=== PATIENT | female | born 1960 | race Caucasian/White ===

== ENCOUNTER 2025-06-20 11:02 | Emergency (ER) | payer OTHER, SELFPAY ==
[2025-06-20] VITALS (18 sets, daily range): BP systolic 102–143; BP diastolic 53–74; PULSE 65–82; RESP 13–24; TEMP 36.1; O2SAT 90–100; BMI 22.1
--- NOTE | 2025-06-20 11:17 | EKG_ITS ---
[address] [address] Test Date: 2025-06-20 Pat Name: Gina Stapleton Department: Room: Gender: Female [place] Attendant: DOYLE : 1960 Requested By: Order Number: [id number] Reading MD: Osmany Solis Measurements Intervals [place] Rate: 72 P: 67 FL: 168 QRS: -7 QRSD: 96 T: 50 QT: 386 QTc: 422 Interpretive Statements Normal sinus rhythm with sinus arrhythmia Low voltage QRS Electronically Signed On 06-24-2025 8:24:57 PDT by Osmany Solis
--- NOTE | 2025-06-20 11:17 | DI.RAD.S_ITS ---
PROCEDURE: XR CHEST 1V INDICATIONS: Possible stroke TECHNIQUE: One view of the chest was acquired. COMPARISON: None. FINDINGS: Surgical changes and devices: None. Lungs and pleura: Lungs are clear. No pleural effusions or pneumothorax. Mediastinum: Mediastinal contours appear normal. Heart size is normal. Bones and chest wall: No suspicious bony lesions. Overlying soft tissues appear unremarkable. IMPRESSION: No acute cardiopulmonary abnormality is seen. Approved by: Cathleen Weller M.D.,Ph.D. on 06/20/2025 at 11:56
--- NOTE | 2025-06-20 11:17 | DI.CT.S_ITS ---
PROCEDURE: CT ANGIO HEAD AND NECK INDICATIONS: dizzy,blurred vision,right arm numbness, numb lips TECHNIQUE: After the administration of intravenous contrast, 1 mm thick sections acquired from the aortic arch through the [place]. 3-dimensional gmgidyp-llgswnwqz-qdpphcvggx (MIP) and/or volume rendering reformats were acquired of the central intracranial vasculature and neck separately. For radiation dose reduction, the following was used: automated exposure control, adjustment of mA and/or kV according to patient size. COMPARISON: None. FINDINGS: Image quality: Diagnostic HEAD ANGIOGRAPHY: Anterior circulation: ICAs: Patent ACAs: Patent MCAs: Patent AComm: No aneurysm Venous sinuses: Patent Posterior circulation: Dominance: Slightly right dominant Vertebral arteries: Patent Basilar artery: Patent PComms: No aneurysm senior product consultant: Patent NECK ANGIOGRAPHY: Aortic arch and subclavian arteries: 4 vessel aortic arch, normal variant CCAs: Patent ICA origins (by NASCET criteria): Mild calcifications on the left. No significant narrowing ICAs: Patent ECAs: Origins are patent. Vertebral arteries: Patent Soft tissues: Partially seen breast implants. Enlarged thyroid parenchyma, without discrete 6 specialist nodule. No enlarged lymph nodes by size criteria in the visualized anatomy. Lung apices: No apical pneumothorax Bones: No significant paranasal sinus opacity IMPRESSION: No large vessel occlusion or high-grade stenosis. If there is high concern for infarction, consider MRI. Any quantitative measurements of stenosis were performed using NASCET criteria. Dictated by: Antony Villafana M.D. on 06/20/2025 at 11:37 Approved by: Antony Villafana M.D. on 06/20/2025 at 11:42
--- NOTE | 2025-06-20 11:17 | DI.CT.S_ITS ---
PROCEDURE: CT STROKE INDICATIONS: Positive BE-FAST, Stroke symptoms TECHNIQUE: Noncontrast 4.5 mm thick angled axial sections acquired from the foramen magnum to the vertex, with coronal reformats. For radiation dose reduction, the following was used: automated exposure control, adjustment of mA and/or kV according to patient size. COMPARISON: None. FINDINGS: Image quality: Diagnostic. CSF spaces: Basal cisterns are patent. No extra-axial fluid collections. The ventricles are symmetric in size and shape. Brain: No intracranial bleeds or mass effect. There is cerebral volume loss, with resultant ventricular and sulcal prominence. There are periventricular and deep white matter chronic small vessel ischemic changes. There is intracranial internal carotid artery atherosclerosis. Skull and face: Calvarium and visualized facial bones appear intact, without suspicious lesions. Sinuses: Visualized sinuses and mastoids are clear. IMPRESSION: No acute intracranial pathology. Findings were discussed with ordering ED provider Dr. Steinberg by Dr. Weller at 11:33 a.m. On 06/20/2025 This study fulfills neurological imaging criteria for inclusion or exclusion of acute stroke therapies based on available published neurological guidelines. Approved by: Cathleen Weller M.D.,Ph.D. on 06/20/2025 at 11:34
--- NOTE | 2025-06-20 11:22 | ED.NEUROSD ---
HPI - Neuro Symptoms/Deficit General Chief Complaint: Neuro Symptoms/Deficit Stated Complaint: Dizzy can't see, everything is blurry Time Seen by Provider: 06/20/25 11:21 Source: patient Mode of arrival: Ambulatory History of Present Illness HPI Narrative: This is a 65-year-old female seen as a code stroke. History is that she developed dizziness 6 days ago. Today is Thursday onset was on . He has been persistently dizzy since then lesion and today noticed numbness in her left arm. Code stroke was called. Nursing staff report that she has grossly neurologically intact. Patient was seen briefly and then proceed with the imaging. Additional history is obtained. She reports that 6 days ago she was bending over while doing some gardening stood up suddenly and felt dizzy. This lasted for about 10 minutes and then resolved. She was able to walk and do her home from outside and sit down. She says that she noted blurry vision yesterday. It is bilateral not associated with diplopia. It is not visual loss. This is persistent and additionally, she feels dizzy. This is at its worse when she is upright. She has not have any tinnitus or hearing loss. We will coming into the hospital today at about 10:00 a.m. she experienced some numbness to her left arm. She has not have headaches at present. She does have a history of migraines but her migraines are not like this. Has a history of bipolar disorder is on lithium. Has had knee replacements and spine surgery. No prior history of stroke or TIA. On Anticoagulants: No Related Data Previous Rx's ?Medication ?Instructions ?Recorded meclizine 25 mg tablet 25 mg PO TID PRN dizziness #20 tabs 06/20/25 Allergies Allergy/AdvReac Type Severity Reaction Status Date / Time penicillin G Allergy Verified 06/20/25 11:12 Review of Systems Hematologic/Lymphatic On Anticoagulants: No Patient History Social History Smoking Status: Current every day smoker Smoking Status: Current every day smoker Exam Initial Vital Signs Initial Vital Signs: Vital Signs Temperature 97.0 F L 06/20/25 11:12 Pulse Rate 79 06/20/25 11:12 Respiratory Rate 14 06/20/25 11:12 Blood Pressure 102/59 L 06/20/25 11:12 Pulse Oximetry 100 06/20/25 11:12 Oxygen Delivery Method Room Air 06/20/25 11:12 vital signs are reviewed Const General: cooperative and No acute distress HENMT Head: normocephalic and atraumatic Ears: hearing grossly normal bilaterally and EAC's normal Face and sinus: face symmetric Mouth: moist mucous membranes Eyes Pupils: PERRL EOM: EOM intact bilaterally Neck Neck: normal visual inspection, supple and No JVD Chest Chest: normal inspection of the chest Resp Effort & Inspection: normal respiratory effort and able to speak in complete sentences Auscultation: clear to auscultation bilaterally Cardio Rate: regular rate Rhythm: regular rhythm Heart Sounds: no murmurs Other: Normal heart rate GI Inspection: normal to inspection Palpation: soft Auscultation: normal bowel sounds Back/Spine/Pelvis Back: normal to inspection Skin General: no rashes or lesions noted and warm Neuro General: patient alert, patient oriented x3 and moves all extremities Speech: speech normal Other: No nystagmus on [place], no nystagmus on extraocular movement testing. Extrem General: full ROM Psych Appearance: grossly normal Course Orders Ordered: ED Orders 06/20/25 11:[address] angio head and neck Stat XR chest 1V Stat Complete Blood Count AUTO DIFF Stat Comprehensive Metabolic Panel Stat [employer] Stat PTT Partial Thromboplastin [place] Stat Prothrombin Time INR Stat Troponin & CK Cardiac Panel Stat EKG-12 Lead Stat 06/20/25 11:43 Urine Drug Screen, Rapid Stat 06/20/25 13:12 MR head/brain wo con Stat Ondansetron HCl (Ondansetron 4 Mg/2 Ml Inj) 4 mg IV NOW PRN PRN Reason: Nausea And Vomiting Ondansetron HCl (Ondansetron 4 Mg Odt) 4 mg PO NOW PRN PRN Reason: Nausea And Vomiting Reevaluation(s) Reevaluation #1: Patient is rechecked prior to discharge. Alert oriented neurologically intact. Patient was able to ambulate with a steady gait unassisted Vital Signs Vital signs: Vital Signs - 8 hr 06/20/25 11:12 06/20/25 11:31 06/20/25 11:32 Temperature 97.0 F L Pulse Rate 79 71 Respiratory Rate 14 Blood Pressure 102/59 L Pulse Oximetry 100 90 L 100 Oxygen Delivery Method Room Air 06/20/25 11:32 06/20/25 11:41 06/20/25 11:41 Temperature Pulse Rate 72 Respiratory Rate Blood Pressure 117/53 L 121/59 L Pulse Oximetry 100 Oxygen Delivery Method Room Air 06/20/25 12:00 06/20/25 12:00 06/20/25 12:30 Temperature Pulse Rate 70 78 Respiratory Rate 14 15 Blood Pressure 119/74 Pulse Oximetry 100 99 Oxygen Delivery Method 06/20/25 12:30 06/20/25 13:00 06/20/25 13:01 Temperature Pulse Rate 70 69 Respiratory Rate 18 20 Blood Pressure 112/63 Pulse Oximetry 100 99 Oxygen Delivery Method Room Air 06/20/25 13:01 06/20/25 13:31 06/20/25 13:32 Temperature Pulse Rate 70 Respiratory Rate 15 Blood Pressure 143/60 H 117/60 Pulse Oximetry 97 Oxygen Delivery Method 06/20/25 13:32 06/20/25 14:00 06/20/25 14:00 Temperature Pulse Rate 65 82 Respiratory Rate 13 19 Blood Pressure 121/58 L Pulse Oximetry 99 99 Oxygen Delivery Method 06/20/25 14:30 06/20/25 14:30 Temperature Pulse Rate 68 Respiratory Rate 20 Blood Pressure 111/58 L Pulse Oximetry 98 Oxygen Delivery Method MDM - Neuro Symptoms/Deficit Lab Data Lab results narrative: Tox screen is negative, lithium level therapeutic at 0.9. CBC with diff and CMP are unremarkable. 06/20/25 11:17 06/20/25 11:17 Labs: Lab Results 06/20/25 06/20/25 06/20/25 Range/Units 11:16 11:17 11:43 WBC 8.3 (4.5-11.0) X10^3/uL RBC 4.47 (4.0-5.2) X10^6/uL Hgb 14.4 (12.0-16.0) g/dL Hct 42.3 (36-46) % MCV 94.6 (80-100) fL MCH 32.3 (26-34) PG MCHC 34.2 (30-36) % RDW 13.5 (11.6-14.8) % Plt Count 287 (150-400) X10^3/uL Neut % (Auto) 60.4 (50-75) % Lymph % (Auto) 25.3 (25-40) % [place] % (Auto) 7.0 (3-14) % Eos % (Auto) 6.1 H (2-4) % Baso % (Auto) 1.2 (0-2) % Neut # (Auto) 5000 (9498-7023) /uL Lymph # (Auto) 2100 (3527-5366) /uL [place] # (Auto) 600 (0-900) /uL Eos # (Auto) 500 H (0-450) /uL Baso # (Auto) 100 (0-100) /uL PT 10.7 (9.4-12.5) SECONDS INR 0.9 (0.9-1.3) APTT 29 (25.1-36.5) SECONDS Sodium 140 (137-145) mmol/L Potassium 3.9 (3.4-5.1) mmol/L Chloride 109 H (98-107) mmol/L Carbon Dioxide 26 (22-32) mmol/L BUN 7 (7-17) mg/dL Creatinine 0.79 (0.52-1.04) mg/dL Estimated GFR > 60 (>60) mL/min BUN/Creatinine Ratio 8.9 (6-22) Glucose 92 (70-99) mg/dL POC Whole Bld Glucose 100 H (70-99) mg/dL Calcium 9.8 (8.4-10.2) mg/dL Total Bilirubin 0.5 (0.2-1.3) mg/dL AST 22 (14-36) IU/L ALT 13 (<35) IU/L Alkaline Phosphatase 83 (38-126) U/L Total Creatine Kinase 40 (30-135) U/L Troponin I < 0.012 (0.01-0.034) ng/mL Total Protein 6.9 (6.3-8.2) g/dL Albumin 4.4 (3.5-5.0) g/dL Globulin 2.5 (1.7-4.1) g/dL Albumin/Globulin Ratio 1.8 (1.0-2.8) U Opiates 300ng/mL cut Negative (Negative) Ur Oxycodone Screen Negative (Negative) Urine Methadone Screen Negative (Negative) Ur Barbiturates Screen Negative (Negative) U Tricyclic Antidepress Negative (Negative) Ur Phencyclidine Scrn Negative (Negative) Ur Amphetamines Screen Negative (Negative) U Methamphetamines Scrn Negative (Negative) Ur MDMA Scrn (Ecstasy) Negative (Negative) U Benzodiazepines Scrn Negative (Negative) [employer] 0.9 (0.6-1.2) mmol/L Urine Cocaine Screen Negative (Negative) U Marijuana (THC) Screen Negative (Negative) Urine pH Normal (Normal) Urine Specific [place] Normal (Normal) Ur Creatinine Normal (Normal) Point of Care Testing Glucose POC 100 Urine Dip Bedside Urine Glucose Negative Bedside Urine Bilirubin - Negative Bedside Urine Ketone - Negative Urine Specific [place] 1.005 Bedside Urine Occult Blood - Negative Bedside Urine pH 6.5 Bedside Urine Protein - Negative Bedside Urine Urobilinogen - Negative Bedside Urine Nitrite - Negative Bedside Urine Leukocytes - Negative Esterase Imaging Data CT scan - head: Radiologist's Impression: [address] [address] [address] Scan Report Signed Patient: Gina Stapleton MR#: [id number] : 1960 Acct:[id number] Age/Sex: 65 / F Date of Service: 06/20/25 Loc: ED Accession Number: [id number] Procedure: CT Stroke Ordering Provider: Jacob Steinberg MD PROCEDURE: CT STROKE INDICATIONS: Positive BE-FAST, Stroke symptoms TECHNIQUE: Noncontrast 4.5 mm thick angled axial sections acquired from the foramen magnum to the vertex, with coronal reformats. For radiation dose reduction, the following was used: automated exposure control, adjustment of mA and/or kV according to patient size. COMPARISON: None. FINDINGS: Image quality: Diagnostic. CSF spaces: Basal cisterns are patent. No extra-axial fluid collections. The ventricles are symmetric in size and shape. Brain: No intracranial bleeds or mass effect. There is cerebral volume loss, with resultant ventricular and sulcal prominence. There are periventricular and deep white matter chronic small vessel ischemic changes. There is intracranial internal carotid artery atherosclerosis. Skull and face: Calvarium and visualized facial bones appear intact, without suspicious lesions. Sinuses: Visualized sinuses and mastoids are clear. IMPRESSION: No acute intracranial pathology. Findings were discussed with ordering ED provider Dr. Steinberg by Dr. Weller at 11:33 a.m. On 06/20/2025 This study fulfills neurological imaging criteria for inclusion or exclusion of acute stroke therapies based on available published neurological guidelines. Approved by: Cathleen Weller M.D.,Ph.D. on 06/20/2025 at 11:34 CTA - brain/neck: Radiologist's Impression: [address] [address] [address] Scan Report Signed Patient: Gina Stapleton MR#: [id number] : 1960 Acct:[id number] Age/Sex: 65 / F Date of Service: 06/20/25 Loc: ED Accession Number: [id number] Procedure: CT angio head and neck Ordering Provider: Jacob Steinberg MD PROCEDURE: CT ANGIO HEAD AND NECK INDICATIONS: dizzy,blurred vision,right arm numbness, numb lips TECHNIQUE: After the administration of intravenous contrast, 1 mm thick sections acquired from the aortic arch through the [place]. 3-dimensional etijiwk-psuwuqakg-kknhmnicem (MIP) and/or volume rendering reformats were acquired of the central intracranial vasculature and neck separately. For radiation dose reduction, the following was used: automated exposure control, adjustment of mA and/or kV according to patient size. COMPARISON: None. FINDINGS: Image quality: Diagnostic HEAD ANGIOGRAPHY: Anterior circulation: ICAs: Patent ACAs: Patent MCAs: Patent AComm: No aneurysm Venous sinuses: Patent Posterior circulation: Dominance: Slightly right dominant Vertebral arteries: Patent Basilar artery: Patent PComms: No aneurysm public policy coordinator: Patent NECK ANGIOGRAPHY: Aortic arch and subclavian arteries: 4 vessel aortic arch, normal variant CCAs: Patent ICA origins (by NASCET criteria): Mild calcifications on the left. No significant narrowing ICAs: Patent ECAs: Origins are patent. Vertebral arteries: Patent Soft tissues: Partially seen breast implants. Enlarged thyroid parenchyma, without discrete 6 specialist nodule. No enlarged lymph nodes by size criteria in the visualized anatomy. Lung apices: No apical pneumothorax Bones: No significant paranasal sinus opacity IMPRESSION: No large vessel occlusion or high-grade stenosis. If there is high concern for infarction, consider MRI. Any quantitative measurements of stenosis were performed using NASCET criteria. Dictated by: Antony Villafana M.D. on 06/20/2025 at 11:37 Approved by: Antony Villafana M.D. on 06/20/2025 at 11:42 Chest x-ray: My Impression: Independently reviewed chest x-ray, no acute finding Radiologist's Impression: Radiology report indicates no acute abnormality MRI brain: Radiologist's Impression: [address] [address] Magnetic Resonance Report Signed Patient: Gina Stapleton MR#: [id number] : 1960 Acct:[id number] Age/Sex: 65 / F Date of Service: 06/20/25 Loc: ED Accession Number: [id number] Procedure: MR head/brain wo con Ordering Provider: Jacob Steinberg MD PROCEDURE: MR HEAD/BRAIN WO CON INDICATIONS: vertigo, stroke suspected TECHNIQUE: Noncontrast axial T1 spin echo, axial T2 fast spin echo, sagittal and axial FLAIR, coronal T2 fast spin echo, axial gradient echo, axial diffusion and ADC through the brain. COMPARISON: [facility], CT, CT STROKE, 06/20/2025, 11:24. FINDINGS: Image quality: Diagnostic CSF spaces: Basal cisterns are patent. Lateral ventricles are symmetric. Volume: Mild volume loss. Mild periventricular FLAIR signal foci, likely chronic microangiopathy. Brain: No acute diffusion restriction or hematoma. Craniofacial structures: No significant paranasal sinus opacity. IMPRESSION: No acute infarct or hematoma. Dictated by: Antony Villafana M.D. on 06/20/2025 at 14:59 Approved by: Antony Villafana M.D. on 06/20/2025 at 15:00 ECG Data Attestation: I personally reviewed and interpreted this ECG as follows: (ECG shows sinus rhythm at [address] segment changes normal intervals) MDM Narrative Medical decision making narrative: 65-year-old female complaining of vertigo. Also says that her vision is blurry but without visual field cuts or visual loss history this is not suggest BPPV. Exam was reassuring, had no focal neurologic deficits an MRI is negative for stroke. Vital signs are reassuring, I do not think that the patient is having orthostatic lightheadedness. Presentation I think is most consistent with a vestibular neuronitis this was explained to the patient as well as the necessity of time and I provided symptomatic treatment. Discharge Plan Departure Patient Disposition: Home Clinical Impression: Acute vestibular neuronitis Qualifiers: Laterality: unspecified laterality Qualified Code(s): H81.20 - Vestibular neuronitis, unspecified ear Activity Restrictions/Additional Instructions: Emergency department evaluation today is reassuring without evidence of a stroke. I think it is safe to go home and that your dizziness is caused by condition called vestibular neuronitis. Typically this resolves over time. In the short term, you can use ondansetron as needed for nausea and meclizine as needed for dizziness. I recommend you follow up with primary care as soon as possible, you can call the [facility] call center as [phone] to help find a primary care provider. I have also made a referral to Otolaryngology. Continue her other previous home medications return to the emergency department for disabling dizziness, new one-sided weakness, severe headache uncontrolled vomiting or other acute symptoms. Prescriptions: New meclizine 25 mg tablet 25 mg PO TID PRN (Reason: dizziness) Qty: 20 0RF Referrals: Skyler Odonnell MD [Physician, Ear, Nose, Throat] Referral Note: acute vestibular neuronitis Clinical Impression: Acute vestibular neuronitis Stand Alone Forms: Patient Portal/API
[2025-06-20 11:25] LABS: Add Manual Diff / Slide Review NO; Hematocrit 42.3 % (36-46); Hemoglobin 14.4 g/dL (12.0-16.0); Lymphocytes Absolute Auto 2100 /uL (1100-4500); Mean Corpuscular HGB Conc 34.2 % (30-36); Mean Corpuscular Hemoglobin 32.3 PG (26-34); Mean Corpuscular Volume 94.6 fL (80-100); Platelet Count 287 X10^3/uL (150-400)
[2025-06-20 11:39] LABS: INR 0.9 (0.9-1.3); Prothrombin Time 10.7 SECONDS (9.4-12.5)
[2025-06-20 11:41] LABS: PTT Partial Thromboplastin Tim 29 SECONDS (25.1-36.5)
[2025-06-20 11:44] LABS: Alanine Aminotransferase 13 IU/L (<35); Albumin 4.4 g/dL (3.5-5.0); Albumin Globulin Ratio 1.8 (1.0-2.8); Alkaline Phosphatase 83 U/L (38-126); Blood Urea Nitrogen 7 mg/dL (7-17); Calcium 9.8 mg/dL (8.4-10.2); Carbon Dioxide 26 mmol/L (22-32); Chloride 109 mmol/L (98-107); Creatine Kinase 40 U/L (30-135); Estimated Glomerular Filt Rate > 60 mL/min (>60); Globulin 2.5 g/dL (1.7-4.1); Glucose 92 mg/dL (70-99); HEMOLYSIS < 15 (0-50); Potassium 3.9 mmol/L (3.4-5.1); Sodium 140 mmol/L (137-145); Total Protein 6.9 g/dL (6.3-8.2)
[2025-06-20 11:56] LABS: Troponin I < 0.012 ng/mL (0.01-0.034)
[2025-06-20 12:03] LABS: Ur Specific Gravity Normal (Normal)
[2025-06-20 12:04] LABS: UR Morphine/Opiate cutoff 300 Negative (Negative); Urine MDMA Negative (Negative); Urine Methamphetamines Negative (Negative); Urine Tetrahydrocannabinol Negative (Negative); Urine Tricyclic Antidepressant Negative (Negative)
--- NOTE | 2025-06-20 13:12 | DI.MRI.S_ITS ---
PROCEDURE: MR HEAD/BRAIN WO CON INDICATIONS: vertigo, stroke suspected TECHNIQUE: Noncontrast axial T1 spin echo, axial T2 fast spin echo, sagittal and axial FLAIR, coronal T2 fast spin echo, axial gradient echo, axial diffusion and ADC through the brain. COMPARISON: [facility], CT, CT STROKE, 06/20/2025, 11:24. FINDINGS: Image quality: Diagnostic CSF spaces: Basal cisterns are patent. Lateral ventricles are symmetric. Volume: Mild volume loss. Mild periventricular FLAIR signal foci, likely chronic microangiopathy. Brain: No acute diffusion restriction or hematoma. Craniofacial structures: No significant paranasal sinus opacity. IMPRESSION: No acute infarct or hematoma. Dictated by: Antony Villafana M.D. on 06/20/2025 at 14:59 Approved by: Antony Villafana M.D. on 06/20/2025 at 15:00
[2025-06-20 13:21] LABS: Lithium 0.9 mmol/L (0.6-1.2)
== END 2025-06-20 17:56 | disposition home or self-care (01) ==
PROVIDERS: Emergency Provider Emergency Medicine
DX: H81.20 Vestibular neuronitis, unspecified ear (principal); R20.0 Anesthesia of skin; H53.8 Other visual disturbances
CPT/HCPCS: 36415; 70450; 70496; 70498; 70551; 71045; 80053; 80178; 80305; 81003; 82550; 82962; 84484; 85025; 85610; 85730; 93005; 99284; 99285; Q9967